=== PATIENT | male | born 1960 | race Caucasian/White ===

== ENCOUNTER 2018-10-22 08:46 | Inpatient (IN) ==
--- NOTE | 2018-10-21 22:33 | Discharge Summary ---
Orders not resulted at time of discharge: Pending orders 10/22/18 00:01 XR hip complete RT [XR] Routine H/H [Hemoglobin and Hematocrit] [HEME] Routine Date of Encounter: 10/23/18 Time of Encounter: 11:40 - Discharge Diagnosis (1) Status post total hip replacement, right Priority: Primary Status: Acute Comments: Opsite dressing, leave intact until first post-operative visit. If dressing becomes >50% saturated, contact office, remove dressing and place appropriate dressing in its place. Do not allow for dressing to get wet. Zipline/[place] in place, plan to remove at post-operative day #14-16. Total Joint Precautions x 6 weeks Apply cold therapy wrap 3-6x/day for 20 minutes at a time. Encourage ambulation throughout the day Use Incentive spirometer 10x/hour. Elevate affected extremity above heart as tolerated. Brace: Wear hip abductor brace at night x 6 weeks. (2) Arthritis of right hip Priority: Primary Status: Acute (3) BIANCA (obstructive sleep apnea) Priority: Secondary Status: Chronic (4) Tobacco use Priority: Secondary Status: Chronic (5) History of pulmonary embolism Priority: Secondary Status: Chronic - Hospital Course Hospital course: Mr. Cortes is a 58 year old male POD#1 - Right THR 10/22 Patient seen at bedside, without complaints. A&O x 3 Afebrile, vital signs stable. Vital Signs Temp Pulse Resp BP Pulse Ox 10/23/18 07:10 98.2 F 75 14 113/65 95 10/23/18 03:38 98.1 F 66 16 102/66 95 10/22/18 22:51 98.3 F 75 17 106/68 97 10/22/18 19:04 97.4 F L 65 16 116/71 98 10/22/18 16:12 98 F 75 16 119/54 95 10/22/18 15:20 98 F 80 16 104/67 97 10/22/18 14:20 98 F 78 15 101/63 96 10/22/18 13:50 97.9 F 75 16 103/72 97 10/22/18 13:20 97.9 F 66 15 111/71 99 10/22/18 12:55 98.7 F 69 16 116/66 95 10/22/18 12:45 72 18 123/75 99 10/22/18 12:35 68 20 139/67 99 10/22/18 12:25 98.8 F 72 24 138/89 100 Intake and Output 10/22/18 10/23/18 10/23/18 23:59 07:59 15:59 Intake Total 890 / 890 350 / 350 240 / 240 Output Total 500 / 500 1600 / 1600 Balance 390 / 390 -1250 / -1250 240 / 240 Intake: IV Fluids 100 / 100 100 / 100 Ancef 2,000 MG In 0.9 % Sodium 100 / 100 100 / 100 Chloride 100 ML @ 200 mls/hr IVPB Q8H [facility] Rx#:[id number] Oral 790 / 790 250 / 250 240 / 240 Output: Urine 500 / 500 1600 / 1600 Other: Meal Dinner Breakfast Percent of Meal Consumed 80% 100% # Voids 1 Weight 88.5 kg Labs reviewed. H/H - stable, asymptomatic Short CBC 10/23/18 10/22/18 Range/Units 05:58 12:38 Hgb 11.0 L D 13.5 (12.9-16.9) g/dL Hct 33.0 L 41.2 (37.5-50.1) % BMP 10/23/18 Range/Units 05:58 Sodium 137 (136-145) mEq/L Potassium 4.3 (3.5-5.1) mEq/L Chloride 107 (98-107) mEq/L Carbon Dioxide 24 (23-29) mEq/L BUN 17 (6-20) mg/dL Creatinine 1.00 (0.70-1.30) mg/dL Glucose 121 H (70-105) mg/dL Calcium 8.6 (8.6-10.3) mg/dL Pain control: adequate Participating in PT. All questions and concerns addressed. Educated on use of incentive spirometer. Encouraged ambulation and proper hydration. Patient educated on post-operative restrictions and post-operative care. Assessment and plan: Continue with postoperative care Discharge plan: Home with OP, discharge today. - Time Spent with Patient Total time spent providing and/or coordinating discharge services: - Discharge Medications Prescriptions: OxyCODONE Immed Rel [Roxicodone 5 MG] 5 mg PO Q6HR PRN 7 Days #28 tablet PRN Reason: Severe Pain Home Medications: Oxycodone HCl/Acetaminophen [Percocet 10-325 mg Tablet] 1 each PO PRN PRN 04/16/18 [History] Aspirin Enteric Coated [Aspirin EC] 325 mg PO BID 10 Days #20 tablet. 10/21/18 [Rx] Docusate [Colace] 100 mg PO BID 10 Days #20 capsule 10/21/18 [Rx] Albuterol Sulfate [Proair Respiclick] 90 mcg IH PRN PRN 10/22/18 [History] Aspirin/Calcium Carbonate/Mag [Aspirin Buffered 325 mg Tab] 325 mg PO 10/22/18 [History] Colace 100 mg PO DAILY 10/22/18 [History] OxyCODONE Immed Rel [Roxicodone 5 MG] 5 mg PO Q6HR PRN 7 Days #28 tablet 10/22/18 [Rx] SUMAtriptan Succinate [Imitrex] 100 mg PO PRN PRN 10/22/18 [History] Ferrous Sulfate 325 mg PO BIDWM tablet 10/23/18 [Rx] Allergies/Adverse Reactions: Allergy/AdvReac Type Severity Reaction Status Date / Time codeine AdvReac Nausea Verified 08/10/17 09:54 meloxicam AdvReac Migraine Verified 08/10/17 09:54 tamsulosin [From Flomax] AdvReac Nausea Verified 08/10/17 09:54 Date of admission: 10/22/18 Primary care physician: Derek Flores MD Anticipated date of discharge: 10/23/18 - Patient Status Disposition: Home, Self-Care Condition: Good Functional capacity at discharge: uses cane/walker Overall status at discharge: patient is progressing back to baseline - Discharge Instructions Follow Up With: Marion Murray PAC [Physician [employer]] - 11/01/18 1:45 pm Mike Sutherland MD [Partnered Physician] - 11/21/18 4:40 pm Derek Flores MD [Primary Care Provider] - 10/26/18 2:15 pm
--- NOTE | 2018-10-22 08:55 | History & Physical Report ---
Date of Encounter: 10/22/18 Time of Encounter: 08:55 24 Hour HP Update - Instructions Instructions: If the History and Physical is less than 30 days old and was completed prior to A.M. admission and or procedure and has NOT been updated on calendar day of procedure please complete this update prior to performing procedure. - Update Patient reports changes in Medical Condition: No Changes in examination, assessment, or condition: No Changes in Medication: No Preop tests/diagnostics Reviewed: Yes Surgery Remains Indicated: Yes Consent for Planned Operative Procedure(s) Verified: Yes - Pre-Operative Checklist Preoperative Checklist Indicated: No Prophylactic Antibiotic Ordered: Yes Is VTE Prophylaxis Indicated?: Yes
[2018-10-22] MEDS ORDERED: Albuterol 2.5 MG/3 ML NEBULIZER IH ONE (09:18)
[2018-10-22] MEDS ORDERED: CeFAZolin Syr 2,000MG/20 ML 2,000 MG/20 ML SYRINGE IVPB ONE (09:18)
--- NOTE | 2018-10-22 09:21 | Anesthesia Evaluation PreOp ---
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 10/21/18 [Rx] Docusate [Colace] 100 mg PO BID 10 Days #20 capsule 10/21/18 [Rx] Albuterol Sulfate [Proair Respiclick] 90 mcg IH PRN PRN 10/22/18 [History] Aspirin/Calcium Carbonate/Mag [Aspirin Buffered 325 mg Tab] 325 mg PO 10/22/18 [History] Colace 100 mg PO DAILY 10/22/18 [History] SUMAtriptan Succinate [Imitrex] 100 mg PO PRN PRN 10/22/18 [History] Allergy/AdvReac Type Severity Reaction Status Date / Time codeine AdvReac Nausea Verified 08/10/17 09:54 meloxicam AdvReac Migraine Verified 08/10/17 09:54 tamsulosin [From Flomax] AdvReac Nausea Verified 08/10/17 09:54 - Meds/Allergy Pre-op Review Medications Reviewed: Yes Allergies Reviewed: Yes Beta Blockers on Current Med List: No Anesthesia Results - Labs Laboratory Tests 10/15/18 10/15/18 10/15/18 15:53 15:53 15:53 WBC 5.9 Hgb 14.5 Hct 42.9 Plt Count 228 PT 10.8 INR 1.0 APTT 30.2 Sodium 138 Potassium 3.8 Chloride 105 Carbon Dioxide 24 BUN 18 Creatinine 1.01 Est GFR (Non-Af Amer) > 60 - Imaging EKG: report reviewed Anesthesia Exam Vital Signs/O2 Sat/Glucose, Most Recent Temp Pulse Resp BP Pulse Ox 97.9 F 77 18 124/80 98 10/22/18 09:03 10/22/18 09:03 10/22/18 09:03 10/22/18 09:03 10/22/18 09:03 Weight: 88 kg NPO (# of Hours): > 8 hr - HEENT Pupil (Motor): Pupils equal Mallampati: II Teeth: Normal Oral Opening: Greater than 3 - FIBER DESIGNER LOC: Oriented FIBER DESIGNER Motor: Normal RUE, Normal LUE, Normal RLE, Normal LLE, Normal Face FIBER DESIGNER Sensory: Normal: RUE, LUE, RLE, LLE, Face - Cardiac Rhythm: Regular Murmur: None - Pulmonary Breath Sounds: bilateral Clear Respiratory Effort: Symmetrical Anesthesia Assess/Plan ASA Score: 3 (BIANCA) Level of consciousness: Cooperative, Oriented Anesthetic Plan: General Reason for No Neuroaxial/Regional Block: Other (history of extensive back surgeries with implanted rods and pins) Monitoring Plan: Standard Monitors Recovery Plan: PACU
[2018-10-22] MEDS ORDERED: *HR* Midazolam HCl 2 MG/2 ML VIAL ONE (09:25)
[2018-10-22] MEDS ORDERED: *HR* FentaNYL (PF) 100 MCG/2 ML VIAL ONE ×2 (09:25→11:24)
[2018-10-22] MEDS ORDERED: *HR* Propofol 200 MG/20 ML VIAL IVP ONE (09:25)
[2018-10-22] MEDS ORDERED: Famotidine 20 MG/2 ML VIAL IVP ONE (09:28)
[2018-10-22] MEDS ORDERED: Gabapentin 300 MG CAPSULE PO ONE (09:28)
[2018-10-22] MEDS ORDERED: *HR* OxyCODONE ER (12 HR) 10 MG TABLET PO ONE (09:28)
[2018-10-22] MEDS ORDERED: Celecoxib 100 MG CAPSULE PO ONE (09:29)
[2018-10-22] MEDS ORDERED: Ringers Solution, Lactated 1,000 ML IVC SCH ×2 (09:30→13:24)
[2018-10-22] MEDS ORDERED: *HR* Promethazine 25 MG/ML VIAL IVP PRN ×3 (09:33→13:24)
[2018-10-22] MEDS ORDERED: *HR* OxyCODONE Immed Rel 5 MG TABLET PO PRN ×2 (09:33→13:24)
[2018-10-22] MEDS ORDERED: Ondansetron 4 MG/2 ML VIAL IVP ONE ×2 (09:33→13:24)
[2018-10-22] MEDS ORDERED: Ketorolac 15 MG/ML VIAL IVP ONE ×2 (09:33→13:24)
[2018-10-22] MEDS ORDERED: Ethanol\\Acetic Acid\\Na Ace\\Ben 1,000 ML IRRIG.SOLN IR ONE (10:08)
[2018-10-22] MEDS ORDERED: *HR* PHENYLEPHRINE 1,000 MCG/10 ML SYRINGE IVP ONE (11:19)
--- NOTE | 2018-10-22 11:57 | Orthopedic Operative Note ---
Date of procedure: 10/22/18 Pre-op diagnosis: Right hip arthritis Post-op diagnosis: same Procedure: Procedure: Right Total Hip Replacment robotic-assisted Estimated blood loss: 200 cc Hardware: Metal and polyethylene replacement. Leni DM Cup: 60 cup Femoral size 11 stem Head: 8 head with Samia Procedural Notes: Grade 4 arthritic changes femoral head acetabular socket, procedure performed with robotic assistance. 2 mm longer operative versus nonoperative leg is measured by preoperative CT scan Operative procedure: The patient was brought to the operating room and placed on the operating room table. After general anesthesia was administered the patient was placed in the lateral decubitus position with the operative leg up. All pressure points were padded appropriately and the head was stabilized in the neutral position. The operative extremity was prepped and draped in the sterile surgical fashion patient received IV antibiotic prior to skin incision. 3 Steinmann pins were placed in the iliac crest 3 cm proximal to the anterior superior iliac spine this was for the robotic-assisted sensor. This was done through a small 2 cm incision. A standard posterior approach is made to the operative hip, the incision was made through the skin and subcutaneous tissue hemostasis was obtained with Bovie cautery. Using careful sharp dissection the fascia was identified and incised exposing the external rotators. The greater trochanter was marked, and length was measured at this time utilizing robotic assistance. The external rotators were released off the greater trochanter and tagged with #2 FiberWire suture. The capsule was T'd open and the hip was brought into internal rotation. Patient noted to have grade 4 arthritic changes femoral head. The femoral neck cut was made at the appropriate level roughly 15 mm proximal to the lesser trochanter aced on preoperative templating. An anterior capsulotomy was performed for the anterior retractor. Soft tissues removed from the acetabulum. Patient noted to have grade 4 arthritic changes acetabulum. The acetabulum reference point was confirmed. The acetabulum was then mapped with robotic assistance. Based on the preoperative plan the acetabulum was reamed in one step with a 59 reamer. The 60 acetabulum was impacted with robotic assistance and 38 degrees of abduction and 20 degrees of anteversion. The hip was brought back in to internal rotation and prepared with the box person followed by the canal finder followed by the reaming process to a size 11/12 broaching process in 20 degrees anteversion. It was broached up to the appropriate size 11 Trial reduction revealed leg lengths close to normal. The femoral implant was impacted in place in 20 degrees of anteversion. Trial reduction found the hip to be stable with 8 head and Samia. The trials were removed and the real implants were impacted in place. The hip was reduced, patient had robotic confirmed leg length of 7 mm longer than the contralateral side. The hip had excellent stability with forward flexion to 90 degrees adduction of 30 degrees and internal rotation of 60 degrees. The hip had no shuck. The hip sat with an antibacterial solution. It was irrigated out with 2 L of pulse irrigation. The Steinmann pins were removed. The hip was closed by the PA. The deep tissue was irrigated and closed deep with #1 PDS suture superficially with 0 PDS suture and skin was closed with Dermabond and zip tie. The patient was placed in a sterile dressing and abduction pillow. The patient was extubated and transferred to the recovery room in stable condition. Anesthesia: BENJAMÍN Surgeon: Mike Sutherland Was there an respiratory therapist assistant present: No Estimated blood loss (cc): 200 Condition: stable Disposition: PACU
[2018-10-22] MEDS: *HR* HYDROmorphone (PF) 1 MG/ML SYRINGE IVP PRN ×2 (12:37→12:48)
[2018-10-22 12:54] LABS: Hematocrit 41.2 % (37.5-50.1); Hemoglobin 13.5 g/dL (12.9-16.9)
--- NOTE | 2018-10-22 13:04 | Anesthesia Evaluation Post Op ---
Date of Encounter: 10/22/18 Time of Encounter: 13:04 - Vital Signs Vital Signs: Vital Signs/O2 Sat/Glucose, Most Recent Temp Pulse Resp BP Pulse Ox 98.7 F 69 16 116/66 95 10/22/18 12:55 10/22/18 12:55 10/22/18 12:55 10/22/18 12:55 10/22/18 12:55 - Lungs Lungs: Clear Ascult./Percussion - Airway Airway: Non-obstructed - Cardiovascular Regular Rate - Mental Status Mental Status: Alert & Oriented, Answers Appropriately - Pain Pain Scale: 0 - Nausea Vomiting Nausea Vomiting: Not Present - Hydration Hydration: Tolerates oral liquids - Discharge PostOp Status: Transfer Patient to floor
[2018-10-22] MEDS ORDERED: *HR* HYDROmorphone (PF) 1 MG/ML SYRINGE IVP PRN (13:24)
[2018-10-22] MEDS ORDERED: MOM Conc 10 ML UD.LIQ PO PRN (13:24)
[2018-10-22] MEDS ORDERED: Temazepam 15 MG CAPSULE PO PRN (13:24)
[2018-10-22] MEDS ORDERED: Ondansetron 4 MG/2 ML VIAL IVP PRN (13:24)
[2018-10-22] MEDS ORDERED: Sennosides 8.6 MG TABLET PO PRN (13:24)
[2018-10-22] MEDS ORDERED: traMADol 50 MG TABLET PO PRN (13:24)
[2018-10-22] MEDS ORDERED: Naloxone 0.4 MG/ML INJ IVP PRN (13:24)
[2018-10-22] MEDS: Multivit/Ca/Min/Fe/FA 1 TAB TABLET PO SCH (14:17)
[2018-10-22] MEDS: *HR* OxyCODONE/APAP 5/325 TABLET PO PRN ×2 (14:22→18:31)
[2018-10-22] MEDS: Ascorbic Acid 500 MG TABLET PO SCH (16:01)
[2018-10-22] MEDS: *HR* Enoxaparin 30 MG/0.3 ML SYRINGE SQ SCH (17:19)
[2018-10-22] MEDS ORDERED: *HR* Enoxaparin 30 MG/0.3 ML SYRINGE SQ SCH (18:00)
[2018-10-22] MEDS: *HR* OxyCODONE Immed Rel 5 MG TABLET PO PRN (23:22)
[2018-10-23] MEDS: *HR* OxyCODONE Immed Rel 5 MG TABLET PO PRN ×2 (04:41→09:03)
[2018-10-23] MEDS: *HR* Enoxaparin 30 MG/0.3 ML SYRINGE SQ SCH (04:42)
[2018-10-23 06:45] LABS: BUN/Creatinine Ratio 17 (6-26); Blood Urea Nitrogen 17 mg/dL (6-20); Calcium 8.6 mg/dL (8.6-10.3); Carbon Dioxide 24 mEq/L (23-29); Chloride 107 mEq/L (98-107); Glucose 121 mg/dL (70-105); Osmolality,Calculated 287 (280-300); Potassium 4.3 mEq/L (3.5-5.1); Sodium 137 mEq/L (136-145); eGFR For Non-African Americans > 60 (> 60)
--- NOTE | 2018-10-23 08:08 | Orthopedics Progress Note ---
Date of Encounter: 10/23/18 Time of Encounter: 08:08 Subjective Interval history: Patient was seen this morning doing well without complaints. Afebrile vital signs stable. Operative extremity: Neurovascularly intact Dressing clean dry and intact Calves nontender Assessment and plan: Continue with postoperative care Hematocrit 33 plan for discharge today Objective Vital signs: Vital Signs Temp Pulse Resp BP Pulse Ox 10/23/18 07:10 98.2 F 75 14 113/65 95 10/23/18 03:38 98.1 F 66 16 102/66 95 10/22/18 22:51 98.3 F 75 17 106/68 97 10/22/18 19:04 97.4 F L 65 16 116/71 98 10/22/18 16:12 98 F 75 16 119/54 95 10/22/18 15:20 98 F 80 16 104/67 97 10/22/18 14:20 98 F 78 15 101/63 96 10/22/18 13:50 97.9 F 75 16 103/72 97 10/22/18 13:20 97.9 F 66 15 111/71 99 10/22/18 12:55 98.7 F 69 16 116/66 95 10/22/18 12:45 72 18 123/75 99 10/22/18 12:35 68 20 139/67 99 10/22/18 12:25 98.8 F 72 24 138/89 100 10/22/18 09:03 97.9 F 77 18 124/80 98 Intake and Output 10/22/18 10/23/18 10/23/18 23:59 07:59 15:59 Intake Total 890 / 890 350 / 350 Output Total 500 / 500 1600 / 1600 Balance 390 / 390 -1250 / -1250 Intake: IV Fluids 100 / 100 100 / 100 Ancef 2,000 MG In 0.9 % Sodium 100 / 100 100 / 100 Chloride 100 ML @ 200 mls/hr IVPB Q8H [facility] Rx#:[id number] Oral 790 / 790 250 / 250 Output: Urine 500 / 500 1600 / 1600 Other: Meal Dinner Percent of Meal Consumed 80% Weight 88.5 kg - Labs CBC & BMP: 10/23/18 05:58 10/23/18 05:58 Labs: Abnormal lab results Hgb 11.0 g/dL (12.9-16.9) L D 10/23/18 05:58 Hct 33.0 % (37.5-50.1) L 10/23/18 05:58 Glucose 121 mg/dL (70-105) H 10/23/18 05:58 - VTE Documentation of Mechanical Device: Venous foot pump, device Consult Discharge Plan - Plan Referrals: Marion Murray, [facility] [Physician [employer]] - 11/01/18 1:45 pm Mike Sutherland MD [Partnered Physician] - 11/21/18 4:40 pm Derek Flores MD [Primary Care Provider] - 10/26/18 2:15 pm Prescriptions: OxyCODONE Immed Rel [Roxicodone 5 MG] 5 mg PO Q6HR PRN 7 Days #28 tablet PRN Reason: Severe Pain
[2018-10-23] MEDS: Ascorbic Acid 500 MG TABLET PO SCH (09:04)
[2018-10-23] MEDS: Multivit/Ca/Min/Fe/FA 1 TAB TABLET PO SCH (09:04)
[2018-10-23 12:04] VITALS: BP 104/68
== END 2018-10-23 13:02 | disposition home or self-care (01) | DRG 470 ==
LOC: SAMDAY 08:46 → 3NENU 13:19
PROVIDERS: ADMIT Orthopaedic Surgery; ATTEND Orthopaedic Surgery

== ENCOUNTER 2018-12-30 19:24 | Inpatient (IN) ==
[2018-12-30] MEDS ORDERED: *HR* Propofol 200 MG/20 ML VIAL IVP ONE (19:29)
[2018-12-30] MEDS ORDERED: *HR* FentaNYL (PF) 100 MCG/2 ML VIAL IVP ONE ×2 (19:29→19:43)
--- NOTE | 2018-12-30 19:33 | Emergency Department Note ---
Disposition Clinical Impression: Femur fracture, right Qualifiers: Encounter type: initial encounter Femur location: unspecified portion of femur Fracture type: closed Fracture morphology: unspecified fracture morphology Qualified Code(s): S72.91XA - Unspecified fracture of right femur, initial encounter for closed fracture Fall Qualifiers: Encounter type: initial encounter Qualified Code(s): W19.XXXA - Unspecified fall, initial encounter Disposition: Admitted As Inpatient Condition: Fair Time of Disposition: 19:34 Lower Extremity Injury HPI - General Stated Complaint: right leg injury Time Seen by Provider: 12/30/18 19:29 Source: patient Mode of arrival: EMS Limitations: no limitations - History of Present Illness HPI Narrative: Patient was sent from [facility] status post fall and right femur fracture proximal to his right knee prosthesis. Patient denies other injury. The orthopedic surgeon Dr. Sutherland was aware of the patient's impending arrival Pt Subjective Complaint: leg injury Injury location: Right thigh Onset (ago): hour(s) Mechanism of Injury: blunt, fall Context: fall Pain Severity: moderate Improves with: immobilization Worsens with: weight bearing, movement, palpation Associated symptoms: Reports: unable to bear weight Treatments prior to arrival: other - Related Data Home Medications Medication Instructions Recorded Confirmed Oxycodone HCl/Acetaminophen 1 each PO PRN PRN 04/16/18 11/05/18 [Percocet 10-325 mg Tablet] Albuterol Sulfate [Proair 90 mcg IH PRN PRN 10/22/18 11/05/18 Respiclick] Colace 100 mg PO DAILY 10/22/18 11/05/18 SUMAtriptan Succinate [Imitrex] 100 mg PO PRN PRN 10/22/18 11/05/18 Previous Rx's Medication Instructions Recorded Aspirin Enteric Coated [Aspirin EC] 325 mg PO BID 10 Days #20 tablet. 10/21/18 Ferrous Sulfate 325 mg PO BIDWM tablet 10/23/18 Allergies Allergy/AdvReac Type Severity Reaction Status Date / Time codeine AdvReac Nausea Verified 08/10/17 09:54 meloxicam AdvReac Migraine Verified 08/10/17 09:54 tamsulosin [From Flomax] AdvReac Nausea Verified 08/10/17 09:54 All systems ED: reviewed and negative except as stated. Constitutional: Reports: as per HPI Eyes: Reports: as per HPI ENT ED: Reports: as per HPI Cardiovascular: Reports: as per HPI Respiratory: Reports: as per HPI Gastrointestinal: Reports: as per HPI Genitourinary: Reports: as per HPI Musculoskeletal: Reports: other (right thigh pain) Integumentary: Reports: as per HPI Neurological: Reports: as per HPI Psychiatric: Reports: as per HPI Endocrine: Reports: as per HPI Hematological/Lymphatic: Reports: as per HPI Allergic/Immunologic: Reports: as per HPI Past Medical History - Past Medical History Source: patient Medical history: Reports: arthritis, COPD, migraine, pulmonary embolus, other Psychiatric history: Reports: anxiety, depression - Social History Smoking Status: Current every day smoker Smokeless Tobacco Status: No Alcohol use: Reports: none Drug use: Reports: none Physical Exam - General Limitations: no limitations General appearance: alert - Head Head exam: atraumatic - Eye Eye exam: Present: normal appearance - ENT ENT exam: normal exam - Neck Neck exam: Present: normal inspection, full ROM - Chest Chest inspection: Present: normal inspection, symmetric chest wall rise - Respiratory Respiratory exam: Present: normal lung sounds bilaterally - Cardiovascular Cardiovascular exam: Present: regular rate, normal rhythm, normal heart sounds - Rectal Exam Rectal exam: Present: deferred - Expanded Lower Extremity Exam Hip/Pelvis exam: Present: normal inspection Upper leg exam: Present: tenderness, swelling, other (Tender swelling in visible deformity to the right distal thigh) Knee exam: Present: normal inspection Lower leg exam: Present: normal inspection Ankle exam: Present: normal inspection Foot/toe exam: Present: normal inspection Neurovascular/Tendon exam: Absent: pulse deficit - Neurological Exam Neurological exam: Present: alert, oriented X3, CN II-XII intact - Psychiatric Psychiatric exam: Present: normal affect, normal mood - Skin Skin exam: Present: warm, dry, intact Course Course Narrative: Patient presents after mechanical fall. He was sent from an outside facility after being diagnosed with a displaced right distal femur fracture. I did review the patient's images and see that his fracture is displaced. I will consent him for procedural sedation analgesia with closed reduction. I will discuss the patient's care with Dr. Sutherland, orthopedics. The patient will require admission - Consultations Consultation #1: I discussed this case with the patient's orthopedic surgeon Dr. Sutherland. He recommended no closed reduction at this time in the emergency department as the patient is neurovascularly intact. He recommended placement of a knee immobilizer and admission to the medicine service with planned surgery tomorrow Time: 19:50 Vital Signs Temperature 98.3 F 12/30/18 19:25 Pulse Rate 82 12/30/18 19:25 Respiratory Rate 18 12/30/18 19:25 Blood Pressure 127/78 12/30/18 19:25 O2 Sat by Pulse Oximetry 96 12/30/18 19:25 Temperature 98.3 F 12/30/18 19:25 Pulse Rate 82 12/30/18 19:25 Respiratory Rate 18 12/30/18 19:25 Blood Pressure 127/78 12/30/18 19:25 O2 Sat by Pulse Oximetry 96 12/30/18 19:25 Oxygen Delivery Oxygen Delivery Room Air Extremity Injury, Lower - Medical Records Medical records reviewed: Yes I reviewed the patient's medical records. - Radiology Data Radiology results reviewed: Yes I reviewed the patient's radiology results.
[2018-12-30 20:21] LABS: Basophils % 0.2 %; Eosinophils # 0.1 K/mcL (0.0-0.6); Eosinophils % 1.2 %; Hematocrit 41.1 % (37.5-50.1); Hemoglobin 13.6 g/dL (12.9-16.9); Immature Granulocytes % 0.4 % (0-4); Lymphocytes # 1.8 K/mcL (0.6-4.6); Lymphocytes % 15.9 %; Mean Corpuscular HGB Conc 33.1 g/dL (31.6-35.5); Mean Corpuscular Hemoglobin 28.5 pg (28.0-33.3); Mean Corpuscular Volume 86.2 fL (83.0-100.0); Mean Platelet Volume 9.7 fL (9.4-12.4); Monocytes % 8.7 %; Neutrophils # 8.3 K/mcL (1.6-8.9); Platelet Count 264 K/mcL (140-400); Red Blood Count 4.77 M/mcL (4.19-5.50); Red Cell Distribution Width 14.1 % (11.5-14.5); Segmented Neutrophils % 73.6 %
[2018-12-30 20:28] LABS: Prothrombin Time 11.3 Seconds (9.4-12.1)
[2018-12-30 20:42] LABS: Alanine Aminotransferase 10 Units/L (7-52); Albumin 4.1 g/dL (3.5-5.7); Albumin/Globulin Ratio 1.6 (1.1-2.2); Alkaline Phosphatase 73 Units/L (34-104); Aspartate Amino Transferase 14 Units/L (13-39); BUN/Creatinine Ratio 13 (6-26); Bilirubin,Total 0.3 mg/dL (0.3-1.0); Blood Urea Nitrogen 12 mg/dL (6-20); Calcium 9.4 mg/dL (8.6-10.3); Carbon Dioxide 24 mEq/L (23-29); Chloride 106 mEq/L (98-107); Globulin 2.6 g/dL (2.4-3.5); Glucose 98 mg/dL (70-105); Osmolality,Calculated 288 (280-300); Potassium 3.9 mEq/L (3.5-5.1); Sodium 139 mEq/L (136-145); Total Protein 6.7 g/dL (6.4-8.9); eGFR For Non-African Americans > 60 (> 60)
[2018-12-30] MEDS ORDERED: Naloxone 0.4 MG/ML INJ IVP PRN (22:42)
[2018-12-30] MEDS ORDERED: OXYCODONE Oral CONC 10 MG/0.5 ML ORAL.SYG SL PRN (22:42)
[2018-12-30] MEDS ORDERED: Ondansetron 4 MG/2 ML VIAL IVP PRN (22:43)
[2018-12-30] MEDS: OXYCODONE Oral CONC 10 MG/0.5 ML ORAL.SYG SL PRN (23:00)
--- NOTE | 2018-12-31 01:13 | Internal Med History&Physical ---
Date of Encounter: 12/31/18 Time of Encounter: 00:40 Internal Medicine - H&P: HPI Chief complaint: Right femur fracture Admitted From: Emergency Dept Plans for Post Hospital Care: Home History of present illness: Mr. Cortes is a 58 year old male Patient presented to the emergency room from [facility] after experiencing a fall and a right femur fracture proximal to the right knee replacement. [place] falling on his right leg. He was then transported to [facility] emergency room where an x-ray of the leg was performed. The results showed: Acute comminuted transverse fracture half shaft width posterior displaced anterior apex angulated 36 degrees distal right femoral metadiaphysis. One of the medial fracture lines extending into the femoral metaphysis may extend to the femoral component of the knee arthroplasty, though this is uncer tain. Tibial component and patellar component of the knee arthroplasty appear unremarkable. No retained foreign body. Patient was then transferred to [facility] emergency room for further management. In the emergency room patient's vital signs were within normal limits. CBC, coa gs, and BMP were also within normal limits. Dr. Sutherland of orthopedic surgery had been notified from [facility] and agreed to see the patient. He planned on operating in the morning. Patient was placed in a right leg splint and sent to the medical floor for further management. Upon my evaluation, patient is resting comfortably in hospital bed in no acute distress. He denies chest pain, bowel pain, nausea, vomiting, diarrhea and constipation. He does have some urinary retention, which she has had before. A Zurita catheter has been placed with 1.4 L of urine output. He says he previously had a knee replacement done in April 2018. He also has had a right hip replacement and revision which was done earlier this year. He has a history of arthritis and nicotine use. He had a pulmonary embolism in 2012 but he does not take anticoagulation aside from an aspirin a day. He has a family history of arthritis as well. He is a full code. Past Med Surg Social Fam HX - Past Medical History Medical history: arthritis, COPD, migraine, pulmonary embolus, other Additional medical history: lumbar disc disease. sleep apnea. heart murmur. tobacco use since a teenager. acute diverticulitis. tubular adenoma/ colonoscopu Psychiatric history: anxiety, depression - Past Surgical History Additional surgical history: back 2011. spinal decomp 1987. Right knee scope. Right thumb arthroplasty/fusion. Right CTR - Social History Smoking Status: Current every day smoker Smokeless Tobacco Status: No Alcohol use: none Drug use: none Internal Medicine - H&P: Meds Oxycodone HCl/Acetaminophen [Percocet 10-325 mg Tablet] 1 each PO PRN PRN 04/16/18 [History] Aspirin Enteric Coated [Aspirin EC] 325 mg PO BID 10 Days #20 tablet. 10/21/18 [Rx] Albuterol Sulfate [Proair Respiclick] 90 mcg IH PRN PRN 10/22/18 [History] Colace 100 mg PO DAILY 10/22/18 [History] SUMAtriptan Succinate [Imitrex] 100 mg PO PRN PRN 10/22/18 [History] Ferrous Sulfate 325 mg PO BIDWM tablet 10/23/18 [Rx] Allergy/AdvReac Type Severity Reaction Status Date / Time meloxicam AdvReac Migraine Verified 12/30/18 20:15 tamsulosin [From Flomax] AdvReac Nausea Verified 12/30/18 20:15 All Systems PM: A 10-system review of systems was performed and is negative for pertinent findings except as documented above in the HPI. - Constitutional Vitals: Temp Pulse Resp BP Pulse Ox 98.4 F 73 17 114/74 97 12/30/18 22:30 12/30/18 22:30 12/30/18 22:30 12/30/18 22:30 12/30/18 22:30 General appearance: Present: cooperative, A&O X 3, pleasant, no acute distress, answers questions appropriately Exam: - - Head Head exam: Present: normal inspection - Eye Eye exam: Present: EOMI, normal appearance - Respiratory Respiratory exam: Present: CTAB. Absent: rales, respiratory distress, rhonchi, wheezes - Cardiovascular Cardiovascular exam: Present: RRR. Absent: diastolic murmur, systolic murmur - GI/Abdominal GI/Abdominal exam: Present: normal bowel sounds, soft. Absent: tenderness - Extremities Exam Extremities exam: Present: tenderness, warm, radial pulses palpable and symmetrical. Absent: calf tenderness, pedal edema Additional comments: Right knee in splint, tender with movement and palpation. - Neurological Exam Neurological exam: Present: strengths equal and symetr throughout. Absent: facial droop, speech deficit Additional comments: Right leg in splint - Skin Skin exam: Present: dry, normal color, warm Internal Med - H&P Results - Labs CBC & Chem 7: 12/30/18 20:10 12/30/18 20:10 Labs: Short CBC 12/30/18 Range/Units 20:10 WBC 11.2 H (4.3-11.1) K/mcL Hgb 13.6 (12.9-16.9) g/dL Hct 41.1 (37.5-50.1) % Plt Count 264 (140-400) K/mcL Neutrophils # 8.3 (1.6-8.9) K/mcL BMP 12/30/18 20:10 Sodium 139 Potassium 3.9 Chloride 106 Carbon Dioxide 24 BUN 12 Creatinine 0.89 Glucose 98 Calcium 9.4 Liver Function 12/30/18 Range/Units 20:10 Total Bilirubin 0.3 (0.3-1.0) mg/dL AST 14 (13-39) Units/L ALT 10 (7-52) Units/L Alkaline Phosphatase 73 (34-104) Units/L Albumin 4.1 (3.5-5.7) g/dL - Assessment and Plan (1) Fall Current Visit: Yes Status: Acute Assessment and plan: Patient fell [place] resulting in a fracture of his right femur. Dr. Sutherland of orthopedic surgery notified, and plans to take patient to surgery later today. A.m. labs Nothing by mouth after midnight Pain management as needed EKG in the morning Chest x-ray in the morning Qualifiers: Encounter type: initial encounter Qualified Code(s): W19.XXXA - Unspecified fall, initial encounter (2) Femur fracture, right Current Visit: Yes Status: Acute Assessment and plan: Secondary to fall Management per orthopedic surgery team Qualifiers: Encounter type: initial encounter Femur location: unspecified portion of femur Fracture type: closed Fracture morphology: unspecified fracture morphology Qualified Code(s): S72.91XA - Unspecified fracture of right femur, initial encounter for closed fracture (3) Status post total right knee replacement Current Visit: No Status: Acute Assessment and plan: Knee replacement last April by Dr. Sutherland. (4) Urinary retention Current Visit: Yes Status: Acute Assessment and plan: Zurita catheter placed, patient had 1.4 L of urine output. Patient says that he has had urinary retention in the past he has a listed allergy to tamsulosin, causing nausea. Continue Zurita catheter Monitor urine output (5) Tobacco use Current Visit: No Status: Chronic Assessment and plan: Patient declines nicotine patch (6) DVT prophylaxis Current Visit: Yes Status: Acute Assessment and plan: We will hold off on SCDs secondary to leg injury, and hold off on chemical prophylaxis for now due to pending surgery. - Time Spent With Patient Total time spent is greater than 50% in coordination of care (as documented) at patient's floor/unit and/or counseling patient: Greater than 35 minutes
[2018-12-31] MEDS ORDERED: 0.9 % Sodium Chloride 1,000 ML IVC ONE (01:46)
[2018-12-31] MEDS: OXYCODONE Oral CONC 10 MG/0.5 ML ORAL.SYG SL PRN (03:04)
[2018-12-31] MEDS ORDERED: OXYCODONE Oral CONC 10 MG/0.5 ML ORAL.SYG SL PRN ×2 (04:34→04:35)
[2018-12-31] MEDS ORDERED: *HR* Morphine 2 MG/ML SYRINGE IVP ONE (04:34)
[2018-12-31 07:25] LABS: Hematocrit 37.6 % (37.5-50.1); Hemoglobin 12.1 g/dL (12.9-16.9); Mean Corpuscular HGB Conc 32.2 g/dL (31.6-35.5); Mean Corpuscular Hemoglobin 27.8 pg (28.0-33.3); Mean Corpuscular Volume 86.4 fL (83.0-100.0); Mean Platelet Volume 9.9 fL (9.4-12.4); Platelet Count 203 K/mcL (140-400); Red Blood Count 4.35 M/mcL (4.19-5.50); Red Cell Distribution Width 14.2 % (11.5-14.5)
--- NOTE | 2018-12-31 07:44 | Internal Med Progress Note ---
<KaliRacquelShanita - Last Filed: 12/31/18 11:01> Hospitalist Progress Note - Encounter Date of Encounter: 12/31/18 Time of Encounter: 09:20 - Subjective Interval History: Pt sitting up in bed awake and alert. Pt admits to pain 2/2 orthoglass cast, not relieved with readjustment earlier. Pt requested relief and noted mild relief of stabbing pain from sharp edges of splint with 2x2 used as padding. Pt states pain 2/2 femur fx 5-6/10; admits paint is well controlled. Pt denies fevers, chills, abdominal pain, SOB, CP - Exam Vitals: Temp Pulse Resp BP Pulse Ox 98.8 F 102 17 101/59 93 12/31/18 07:15 12/31/18 07:15 12/31/18 07:15 12/31/18 07:15 12/31/18 07:15 Exam: Gen: NAD, awake and alert. ENT: MMM CV: RRR, no murmurs, gallops Resp: CTAB, no wheezes, rales Abd: soft, NTTP, no guarding or rebound LE: b/l DP 2/4, no LE edema. RLE in flexed, medial lateral orthoglass splint, with skin pink and warm distal to splint skin: warm and dry Psych: appropriate mood and congruent affect - Assessment and Plan (1) Fall Current Visit: Yes Status: Acute Assessment and Plan: Patient fell [place] resulting in a fracture of his right femur. CXR shows no acute cardiopulmonary disease EKG: Plan: Dr. Sutherland of orthopedic surgery to take patient to surgery later today. Pain management as needed (2) Femur fracture, right Current Visit: Yes Status: Acute Assessment and Plan: s/p fall X-rays show periprosthetic comminuted displaced distal right femur fracture. Currently in flexed position with medial lateral splints in place Ortho following, appreciate recs Plan: Ortho to take for open reduction internal fixation of R femur this morning Will monitor post op Provide pain control (3) Urinary retention Current Visit: Yes Status: Acute Assessment and Plan: Zurita cath in place 1500 output total Plan: Continue to monitor prepare for bladder training for discharge (4) Anemia Current Visit: Yes Status: Acute Assessment and Plan: Possibly 2/2 hypovolemia Pt without active signs of external or internal bleeding SBP has decreased from 127 last night to 101 this morning Reflex tachycardia 102 afebrile Plan: H/H to monitor type and screen transfuse if necessary (5) Status post total right knee replacement Current Visit: No Status: Acute Assessment and Plan: April [address] Sutherland (6) DVT prophylaxis Current Visit: Yes Status: Acute Assessment and Plan: Holding chemical and SCD at this time due to scheduled surgery this morning. - Time Spent with Patient Total time spent is greater than 50% in coordination of care (as documented) at patient's floor/unit and/or counseling patient: Internal Medicine: Result - Labs CBC & Chem 7: 12/31/18 06:16 12/31/18 06:16 Labs: Short CBC 12/30/18 12/31/18 Range/Units 20:10 06:16 WBC 11.2 H 8.5 (4.3-11.1) K/mcL Hgb 13.6 12.1 L D (12.9-16.9) g/dL Hct 41.1 37.6 (37.5-50.1) % Plt Count 264 203 (140-400) K/mcL Neutrophils # 8.3 (1.6-8.9) K/mcL BMP 12/30/18 20:10 Sodium 139 Potassium 3.9 Chloride 106 Carbon Dioxide 24 BUN 12 Creatinine 0.89 Glucose 98 Calcium 9.4 Liver Function 12/30/18 Range/Units 20:10 Total Bilirubin 0.3 (0.3-1.0) mg/dL AST 14 (13-39) Units/L ALT 10 (7-52) Units/L Alkaline Phosphatase 73 (34-104) Units/L Albumin 4.1 (3.5-5.7) g/dL - ABG Interpretation ABG results: PT/INR, D-dimer PT 11.3 Seconds (9.4-12.1) 12/30/18 20:10 - Impressions Impressions Chest X-Ray 12/31/18 06:00 IMPRESSION: No acute cardiopulmonary disease. D/ / 12/31/2018 07:22:49 Prabhu Martinez MD / debbie Interpreting Provider: Prabhu Martinez MD Consult Discharge Plan - Plan Referrals: NONE,PCP [Primary Care Provider] - <Abigail Chaves - Last Filed: 12/31/18 13:34> Hospitalist Progress Note - Encounter Date of Encounter: 12/31/18 - Exam Vitals: Temp Pulse Resp BP Pulse Ox 99.5 F 76 17 97/51 94 12/31/18 11:08 12/31/18 11:08 12/31/18 11:08 12/31/18 11:08 12/31/18 11:08 - Time Spent with Patient Total time spent is greater than 50% in coordination of care (as documented) at patient's floor/unit and/or counseling patient: Internal Medicine: Result - Labs CBC & Chem 7: 12/31/18 06:16 12/31/18 06:16 Labs: Short CBC 12/30/18 12/31/18 Range/Units 20:10 06:16 WBC 11.2 H 8.5 (4.3-11.1) K/mcL Hgb 13.6 12.1 L D (12.9-16.9) g/dL Hct 41.1 37.6 (37.5-50.1) % Plt Count 264 203 (140-400) K/mcL Neutrophils # 8.3 (1.6-8.9) K/mcL BMP 12/30/18 12/31/18 20:10 06:16 Sodium 139 137 Potassium 3.9 4.2 Chloride 106 105 Carbon Dioxide 24 26 BUN 12 13 Creatinine 0.89 0.92 Glucose 98 115 H Calcium 9.4 8.7 Liver Function 12/30/18 Range/Units 20:10 Total Bilirubin 0.3 (0.3-1.0) mg/dL AST 14 (13-39) Units/L ALT 10 (7-52) Units/L Alkaline Phosphatase 73 (34-104) Units/L Albumin 4.1 (3.5-5.7) g/dL - ABG Interpretation ABG results: PT/INR, D-dimer PT 11.3 Seconds (9.4-12.1) 12/30/18 20:10 - Impressions Impressions Chest X-Ray 12/31/18 06:00 IMPRESSION: No acute cardiopulmonary disease. D/ / 12/31/2018 07:22:49 Prabhu Martinez MD / debbie Interpreting Provider: Prabhu Martinez MD - Attending Attestation The history, physical exam, and medical decision making was performed by the medical student Kali either while I was physically present and actively involved or I personally re-performed the exam and medical decision making. I have verified the accuracy of the medical student's documentation with regards to the history, physical exam findings, and medical decision making. Mr Cortes presented from OSH with right femur fracture and trasnferred here for surgical intervention awake, having knee pain, uncomfortable, wanting ortho to come back to see him as splint is uncomfortable. no pain in foot/ankle or hip. no cp, sob, pressure here or at home. activity is nt impaired at home by cp or sob. very eager for surgery today. gen- alert, awake,appears stated age cv- reg rate and rhythm, normal s1,s2, no murmurs appreciated, dp/pt puses intact and equal lungs- ctabl, no wheezing, rhonchi or crackles, normal resp effort on room air abd- soft, non tender, non distended, + bs msk- right knee splint in place, no ecchymosis,or erythema appreciated in visible portion of knee neuro- AAOx3, sensation to light touch rle intact Acute Comminuted transvere displaced right knee fracture with possible extension to right knee arthroplasty -seen by ortho -to or today -preop ekg and cxr normal -prn pain control Acute anemia suspected 2/2 fracture hgb 12.1 - will monitor in post op setting, no other identifiable bleeding source Leukocytosis resolved without intervention likely reactive 2/2 fracture Tobacco use- cessation education, patch as needed PE 2012 on ASA daily - will be on post op vte ppx, hold pre op COPD, stable vte ppx scd foot pumps pre op <KaliShanita - Last Filed: 12/31/18 11:01> (1) Fall Qualifiers: Encounter type: initial encounter Qualified Code(s): W19.XXXA - Unspecified fall, initial encounter (2) Femur fracture, right Qualifiers: Encounter type: initial encounter Femur location: unspecified portion of femur Fracture type: closed Fracture morphology: unspecified fracture morphology Qualified Code(s): S72.91XA - Unspecified fracture of right femur, initial encounter for closed fracture (4) Anemia Qualifiers: Anemia type: unspecified type Qualified Code(s): D64.9 - Anemia, unspecified
[2018-12-31 07:46] LABS: BUN/Creatinine Ratio 14 (6-26); Blood Urea Nitrogen 13 mg/dL (6-20); Calcium 8.7 mg/dL (8.6-10.3); Carbon Dioxide 26 mEq/L (23-29); Chloride 105 mEq/L (98-107); Glucose 115 mg/dL (70-105); Osmolality,Calculated 285 (280-300); Potassium 4.2 mEq/L (3.5-5.1); Sodium 137 mEq/L (136-145); eGFR For Non-African Americans > 60 (> 60)
--- NOTE | 2018-12-31 07:58 | Orthopedics Progress Note ---
Date of Encounter: 12/31/18 Time of Encounter: 07:56 Subjective Interval history: Patient seen this morning, patient is well-known to me. Patient is status post right total knee replacement and right total hip replacement. Patient subsequent knee had a periprosthetic right hip fracture underwent revision of the right femoral component. Patient was seen in the office last week overall making progress, patient reports reinjuring the right lower extremity in the [place] yesterday. Alicia the bone cracked. Alert and oriented 3 Normocephalic/atraumatic Right lower extremity Neurovascular intact In a flexed position Compartments soft Medial Lateral splints in place X-rays reviewed show periprosthetic comminuted displaced distal right femur fracture. Patient is recommended for open reduction internal fixation of right femur. Patient understands the significant issues he is having with this right leg, and potential complications. We reviewed the risks and benefits as well as recovery. All questions were answered. The patient agreed to this treatment plan and acknowledged an understanding of the treatment plan as described. Objective Vital signs: Vital Signs Temp Pulse Resp BP Pulse Ox 12/31/18 07:15 98.8 F 102 17 101/59 93 12/31/18 03:10 98.4 F 56 16 104/62 96 12/30/18 22:30 98.4 F 73 17 114/74 97 12/30/18 22:14 95 12/30/18 20:17 95 12/30/18 19:25 98.3 F 82 18 127/78 96 Intake and Output 12/30/18 12/30/18 12/31/18 15:59 23:59 07:59 Output Total 1500 / 1500 Balance -1500 / -1500 Output: Catheter 1500 / 1500 Other: Weight 87.6 kg - Labs CBC & BMP: 12/31/18 06:16 12/31/18 06:16 Labs: Abnormal lab results Hgb 12.1 g/dL (12.9-16.9) L D 12/31/18 06:16 MCH 27.8 pg (28.0-33.3) L 12/31/18 06:16 Glucose 115 mg/dL (70-105) H 12/31/18 06:16 Consult Discharge Plan - Plan Referrals: NONE,PCP [Primary Care Provider] -
--- NOTE | 2018-12-31 13:25 | Anesthesia Evaluation PreOp ---
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 IMAGER History: Other (anxiety, depression, migraine, bipolar) Other Medical History: Denies Any Significant HX Anesthesia History: No Prior Anesthetic Complications, Past Anesthesia (Back sx 1987, 2011, Knee scope, R- Thumb,) Alcohol Use: none Drug use: none Medications and Allergies Albuterol Sulfate [Albuterol Inhaler] 2 puff PO Q6H PRN 12/31/18 [History] Aspirin Enteric Coated [Aspirin EC] 162.5 mg PO QAM 12/31/18 [History] Allergy/AdvReac Type Severity Reaction Status Date / Time meloxicam AdvReac Migraine Verified 12/30/18 20:15 tamsulosin [From Flomax] AdvReac Nausea Verified 12/30/18 20:15 - Meds/Allergy Pre-op Review Medications Reviewed: Yes Allergies Reviewed: Yes Beta Blockers on Current Med List: No Anesthesia Results - Labs 12/31/18 06:16 12/31/18 06:16 Laboratory Tests 10/15/18 12/30/18 15:53 20:10 PT 11.3 INR 1.0 APTT 30.2 - Imaging EKG: report reviewed (SINUS RHYTHM Electronically Signed On 04-12-2018 16:22:47 EDT by Sandra Siu) Anesthesia Exam Vital Signs/O2 Sat, Most Current Temp Pulse Resp BP Pulse Ox 99.5 F 76 17 97/51 94 12/31/18 11:08 12/31/18 11:08 12/31/18 11:08 12/31/18 11:08 12/31/18 11:08 Weight: 87kg NPO (# of Hours): >8 - HEENT Pupil (Motor): Pupils equal, EOMI Mallampati: II Teeth: Normal (fair condition) Oral Opening: Greater than 3 - DIGITAL IMAGER LOC: Oriented DIGITAL IMAGER Motor: Normal RUE, Normal LUE, Normal RLE, Normal LLE, Normal Face DIGITAL IMAGER Sensory: Normal: RUE, LUE, RLE, LLE, Face - Cardiac Rhythm: Regular - Pulmonary Breath Sounds: bilateral Clear Respiratory Effort: Symmetrical Anesthesia Assess/Plan ASA Score: 3 Level of consciousness: Cooperative Anesthetic Plan: General, Regional Nerve Block Regional Nerve Block Plan: Femoral (Right) Reason for No Neuroaxial/Regional Block: Other (pt has had extensive lumbar surgeries so will not perform spinal will place a peripheral nn block instead) Monitoring Plan: Standard Monitors Recovery Plan: PACU
[2018-12-31] MEDS ORDERED: Albuterol 2.5 MG/3 ML NEBULIZER IH ONE (13:36)
[2018-12-31] MEDS ORDERED: *HR* Meperidine 25 MG/ML SYRINGE IVP PRN (13:37)
[2018-12-31] MEDS ORDERED: *HR* OxyCODONE Immed Rel 5 MG TABLET PO PRN (13:37)
[2018-12-31] MEDS ORDERED: Ondansetron 4 MG/2 ML VIAL IVP ONE (13:37)
[2018-12-31] MEDS ORDERED: *HR* Promethazine 25 MG/ML VIAL IVP PRN (13:37)
[2018-12-31] MEDS ORDERED: Albuterol 2.5 MG/3 ML NEBULIZER ONE (13:39)
[2018-12-31] MEDS ORDERED: Acetaminophen IV 1,000 MG/100 ML INFUS..BTL ONE (13:41)
[2018-12-31] MEDS ORDERED: Ringers Solution, Lactated 1,000 ML IVC SCH (13:45)
[2018-12-31] MEDS ORDERED: ROPIVACAINE HCL/PF 0.5% 30 ML VIAL ONE (13:51)
[2018-12-31] MEDS ORDERED: CeFAZolin Syr 2,000MG/20 ML 2,000 MG/20 ML SYRINGE IVPB ONE (14:05)
--- NOTE | 2018-12-31 14:06 | Anesthesia Procedures ---
Date of Encounter: 12/31/18 Time of Encounter: 14:00 Procedures: Anesthesia - Nerve Block Procedure Date: 12/31/18 Time: 14:00 Allergies/Adv Reactions: meloxicam, tamsulosin Surgical Procedure: right fremur orif Checklist: Correct Patient Identifier, Correct procedure, History checked Correct side: Right Blood Thinner: No Monitor Applied: EKG, BP, Pulse Oximetry Supplemental Oxygen via Nasal Cannula (L/min): 2 Sedation: Versed (mg): 2 Sedation: Fentanyl (mcg): 100 Indication: Post Op Analgesia Pre-op Neuro Deficits: No Block Type: Femoral Catheter placed: No Sterile Technique: Yes Ultrasound used: Yes Anatomy identified: Yes Visual spread of Local: Yes Neuro Stimulation: Yes Nerve Stimulator Range: 0.2 - 0.4 mA Blood on Needle Aspiration: No Smooth Injection of Local: Yes Pain with Injection of Local: No Prep: Chlorhexadine Needle: 22 x 50 mm Stimuplex Local: Ropivacaine (0.5%), Other (decadron 8mg) Volume (cc): 30 Number of Attempts: 1 Complications: None/effective block Vitals: Vital Signs/O2 Sat/Glucose, Most Recent Temp Pulse Resp BP Pulse Ox 99.5 F 84 15 98/63 95 12/31/18 11:08 12/31/18 13:59 12/31/18 13:59 12/31/18 13:59 12/31/18 13:59
[2018-12-31] MEDS ORDERED: Dexamethasone 4 MG/ML VIAL ONE (15:07)
[2018-12-31] MEDS ORDERED: *HR* PHENYLEPHRINE 1,000 MCG/10 ML SYRINGE IVP ONE (15:07)
[2018-12-31] MEDS ORDERED: Lidocaine -MPF 2% 2 ML VIAL ONE (15:08)
[2018-12-31] MEDS ORDERED: *HR* FentaNYL (PF) 100 MCG/2 ML VIAL ONE ×2 (15:08→15:11)
[2018-12-31] MEDS ORDERED: *HR* Midazolam HCl 2 MG/2 ML VIAL ONE (15:08)
[2018-12-31] MEDS ORDERED: *HR* Propofol 200 MG/20 ML VIAL IVP ONE (15:08)
[2018-12-31] MEDS ORDERED: *HR* Rocuronium Bromide 50 MG/5 ML VIAL ONE (15:08)
[2018-12-31] MEDS ORDERED: Ondansetron 4 MG/2 ML VIAL ONE (15:32)
[2018-12-31] MEDS ORDERED: Ethanol\\Acetic Acid\\Na Ace\\Ben 1,000 ML IRRIG.SOLN IR ONE (15:51)
--- NOTE | 2018-12-31 16:00 | Electrocardiograph Report ---
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
--- NOTE | 2018-12-31 16:11 | Orthopedic Operative Note ---
Date of procedure: 12/31/18 Pre-op diagnosis: Displaced comminuted periprosthetic right distal femur fracture Post-op diagnosis: same Procedure: Right femur open reduction internal fixation Estimated blood loss: 200 cc Hardware: Leni Large Frag 8 hole locking Plate, 16 4.5 cortical screws and 5.0 Locking screws Procedural Notes: Patient with a comminuted displaced fracture proximal to the femoral component. Femoral component of total knee appeared to be unaffected. The plate had overlap with the distal femur from the total hip replacement. Operative procedure: The patient was brought to the operating room and placed on the operating room fracture table. The well leg was placed in the well leg bailey, the fracture leg was placed in the fracture leg bailey. After general anesthesia was administered the operative leg was prepped and draped in the sterile surgical fashion The patient received IV antibiotics prior to skin incision. A standard lateral approach was made to the femur the incision is made to the skin and subcutaneous tissue. Hemostasis was obtained with Bovie cautery. Using careful blunt dissection the tensor fascia was identified and incised along the length of the incision. The vastus lateralis was elevated up after the fascia was split exposing the lateral femur and the fracture site. Patient noted to have a comminuted displaced fracture. The fractures reduced and held in place with bone holding forceps a Leni 8 hole large fragment locking plate was approximated to the lateral surface was fixed with a combination of 5.0 locking screws and 4.5 compression screws. Position of hardware as well as fracture reduction was found to be acceptable with fluoroscopic assistance in the AP and lateral planes.. The wound was irrigated the fascia was closed with a running #1 PDS suture tensa fascia was closed with a running #2 PDS suture subcutaneous tissues and closed deep #1 PDS suture superficially with 0 PDS suture and skin was closed with Dermabond and skin kimberly. The patient was placed in a sterile dressing, and knee immobilizer The patient was extubated, and then transferred to the recovery room in stable condition. Anesthesia: GETA Surgeon: Mike Sutherland Was there an imaging assistant present: No Estimated blood loss (cc): 200 Condition: stable Disposition: PACU
[2018-12-31] MEDS: *HR* HYDROmorphone (PF) 1 MG/ML SYRINGE IVP PRN ×2 (16:36→16:41)
--- NOTE | 2018-12-31 16:56 | Anesthesia Evaluation Post Op ---
Date of Encounter: 12/31/18 Time of Encounter: 16:55 - Vital Signs Vital Signs: Vital Signs/O2 Sat/Glucose, Most Recent Temp Pulse Resp BP Pulse Ox 100.3 F H 71 20 118/67 97 12/31/18 16:29 12/31/18 16:49 12/31/18 16:49 12/31/18 16:49 12/31/18 16:49 - Lungs Lungs: Clear Ascult./Percussion - Airway Airway: Non-obstructed - Cardiovascular Regular Rate - Mental Status Mental Status: Alert & Oriented, Answers Appropriately - Pain Pain Scale: 4 (resting between care) Pain Scale used: Numeric (1 - 10) - Nausea Vomiting Nausea Vomiting: Not Present - Hydration Hydration: NPO - Discharge PostOp Status: Transfer Patient to floor
[2018-12-31 17:34] LABS: Hematocrit 38.7 % (37.5-50.1); Hemoglobin 12.2 g/dL (12.9-16.9)
--- NOTE | 2019-01-01 06:24 | Orthopedics Progress Note ---
Date of Encounter: 01/01/19 Time of Encounter: 06:24 Subjective Interval history: Patient was seen this morning doing well without complaints. Afebrile vital signs stable. Operative extremity: Neurovascularly intact Dressing clean dry and intact Calves nontender Assessment and plan: Continue with postoperative care Objective Vital signs: Vital Signs Temp Pulse Resp BP Pulse Ox 01/01/19 03:10 99.0 F 72 16 108/62 96 01/01/19 00:22 98.5 F 72 14 105/59 98 12/31/18 19:25 97.9 F 85 16 119/54 97 12/31/18 17:38 98.1 F 73 16 108/65 98 12/31/18 16:59 99.7 F H 72 20 117/71 98 12/31/18 16:49 71 20 118/67 97 12/31/18 16:39 77 20 112/73 97 12/31/18 16:29 100.3 F H 78 20 120/73 93 12/31/18 14:37 84 16 101/62 94 12/31/18 14:27 83 16 101/59 96 12/31/18 14:11 83 15 98/75 95 12/31/18 14:07 82 16 101/70 94 12/31/18 13:59 84 15 98/63 95 12/31/18 13:50 83 16 113/61 96 12/31/18 11:08 99.5 F 76 17 97/51 94 12/31/18 07:15 98.8 F 102 17 101/59 93 Intake and Output 12/31/18 12/31/18 01/01/19 15:59 23:59 07:59 Intake Total 450 / 450 150 / 150 Output Total 600 / 600 900 / 900 2049 Balance -600 / -600 -450 / -450 -1900 / -1900 Intake: IV Fluids 100 / 100 Ancef 2,000 MG In 0.9 % Sodium 100 / 100 Chloride 100 ML @ 200 mls/hr IVPB Q8H [facility] Rx#:[id number] Oral 350 / 350 150 / 150 Output: Estimated Blood Loss 500 / 500 Catheter 600 / 600 400 / 400 2049 Other: Percent of Meal Consumed 0% Weight 86.94 kg Patient Weight 01/01/19 23:59 Weight 86.94 kg - Labs CBC & BMP: 12/31/18 16:44 12/31/18 06:16 Labs: Abnormal lab results Hgb 12.2 g/dL (12.9-16.9) L 12/31/18 16:44 MCH 27.8 pg (28.0-33.3) L 12/31/18 06:16 Glucose 115 mg/dL (70-105) H 12/31/18 06:16 Consult Discharge Plan - Plan Referrals: NONE,PCP [Primary Care Provider] -
[2019-01-01] MEDS ORDERED: *HR* HYDROcodone/Acet 5/325 mg TABLET PO PRN (06:57)
--- NOTE | 2019-01-01 08:02 | Internal Med Progress Note ---
<Win Dominguez - Last Filed: 01/01/19 13:03> Hospitalist Progress Note - Encounter Date of Encounter: 01/01/19 Time of Encounter: 09:00 - Subjective Interval History: Patient reports a lot of pain in the right lower extremity. He is able to move his toes and denies any numbness or tingling in the right lower extremity. He denies any acute overnight events. - Exam Vitals: Temp Pulse Resp BP Pulse Ox 98.8 F 69 16 106/65 96 01/01/19 07:15 01/01/19 07:15 01/01/19 07:15 01/01/19 07:15 01/01/19 07:15 Exam: General: pleasant, without distress Cardiovascualr: Regular rate and rhythm with no murmur, absent gallops or rubs, absent pedal edema, radial pulses 2 out of 4 Lungs: Clear to auscultation bilaterally, not in respiratory distress Abdomen: Soft nontender, nondistended positive bowel sounds, absent hepatomegaly Skin: warm and dry, absent rash, absent open wounds and nodules MSK: absent clubbing, cyanosis, joints without swelling. Right lower extremity in cast Neuro: Alert oriented 3 Psych: good insight and judgment, anxious - Assessment and Plan (1) Femur fracture, right Current Visit: Yes Status: Acute Assessment and Plan: Patient's x-ray shows periprostatic comminuted displaced distal right femur fracture Underwent orthopedic surgery last night without any complications PT OT eval Heparin subcutaneous Pain regimen (2) Anemia Current Visit: Yes Status: Acute Assessment and Plan: Hemoglobin is stable (3) Status post revision of total hip replacement Current Visit: Yes Status: Acute (4) Urinary retention Current Visit: Yes Status: Acute Assessment and Plan: Patient has a Zurita catheter and has January 2000 cc of urine today. Plan: We will remove Zurita catheter and assess urinary output. DVT Prophylaxis: heparin SQ - Time Spent with Patient Total time spent is greater than 50% in coordination of care (as documented) at patient's floor/unit and/or counseling patient: Internal Medicine: Result - Labs CBC & Chem 7: 01/01/19 08:29 12/31/18 06:16 Labs: Short CBC 12/31/18 Range/Units 16:44 Hgb 12.2 L (12.9-16.9) g/dL Hct 38.7 (37.5-50.1) % - ABG Interpretation ABG results: PT/INR, D-dimer PT 11.3 Seconds (9.4-12.1) 12/30/18 20:10 - Impressions Impressions Knee X-Ray 12/31/18 13:21 IMPRESSION: ORIF distal femur fracture without complication. D/ / 12/31/2018 17:30:50 Armin Rawls MD / niranjan Interpreting Provider: Armin Rawls MD Femur X-Ray 12/31/18 15:03 IMPRESSION: Intraprocedural fluoroscopic spot images as above. See separate procedure report for more information. D/ / Davi Snug MD / Davi Sung MD Interpreting Provider: Davi Sung MD Fluoroscopy 12/31/18 15:03 IMPRESSION: Intraprocedural fluoroscopic spot images as above. See separate procedure report for more information. D/ / Davi Sung MD / Davi Sung MD Interpreting Provider: Davi Sung MD Consult Discharge Plan - Plan Referrals: NONE,PCP [Primary Care Provider] - <Abigail Chaves - Last Filed: 01/01/19 13:57> Hospitalist Progress Note - Encounter Date of Encounter: 01/01/19 - Exam Vitals: Temp Pulse Resp BP Pulse Ox 98.5 F 69 18 125/71 97 01/01/19 11:25 01/01/19 11:25 01/01/19 11:25 01/01/19 11:25 01/01/19 11:25 - Time Spent with Patient Total time spent is greater than 50% in coordination of care (as documented) at patient's floor/unit and/or counseling patient: Internal Medicine: Result - Labs CBC & Chem 7: 01/01/19 08:29 12/31/18 06:16 Labs: Short CBC 12/31/18 01/01/19 Range/Units 16:44 08:29 Hgb 12.2 L 12.2 L (12.9-16.9) g/dL Hct 38.7 38.5 (37.5-50.1) % - ABG Interpretation ABG results: PT/INR, D-dimer PT 11.3 Seconds (9.4-12.1) 12/30/18 20:10 - Impressions Impressions Knee X-Ray 12/31/18 13:21 IMPRESSION: ORIF distal femur fracture without complication. D/ / 12/31/2018 17:30:50 Armin Rawls MD / niranjan Interpreting Provider: Armin Rawls MD Femur X-Ray 12/31/18 15:03 IMPRESSION: Intraprocedural fluoroscopic spot images as above. See separate procedure report for more information. D/ / Davi Sung MD / Davi Sung MD Interpreting Provider: Davi Sung MD Fluoroscopy 12/31/18 15:03 IMPRESSION: Intraprocedural fluoroscopic spot images as above. See separate procedure report for more information. D/ / Davi Sung MD / Davi Sung MD Interpreting Provider: Davi Sung MD - Attending Attestation I examined this patient and my medical decision-making was reviewed with the Resident Physician Dr Dominguez. I agree with the documented findings, disposition and treatment plan as described except to the extent set forth below. Mr Cortes presented from OSH with right femur fracture and transferred here for surgical intervention awake, in chair, + knee pain, tolerable, no cp, pressure, sob, presyncope. gen- alert, awake,appears stated age cv- reg rate and rhythm, normal s1,s2, no murmurs appreciated lungs- ctabl, no wheezing, rhonchi or crackles, normal resp effort on room air abd- soft, non tender, non distended, + bs msk- right knee brace/ewelina in place neuro- AAOx Acute Comminuted transvere displaced right knee fracture with possible extension to right knee arthroplasty -s/p OR with Dr Sutherland 12/31 -prn pain control -post op care as per ortho -vte ppx sq hep -dc to rehab likely per Acute anemia suspected 2/2 fracture hgb 12.1 - stable in post operative setting, NOT post op blood loss related anemia hemodynamically stable PE 2012 on ASA daily - on post op vte ppx hep sq , hold asa further diagnoses and plan as noted by resident <Win Dominguez - Last Filed: 01/01/19 13:03> (1) Femur fracture, right Qualifiers: Encounter type: initial encounter Femur location: unspecified portion of femur Fracture type: closed Fracture morphology: unspecified fracture mo rphology Qualified Code(s): S72.91XA - Unspecified fracture of right femur, initial encounter for closed fracture (2) Anemia Qualifiers: Anemia type: unspecified type Qualified Code(s): D64.9 - Anemia, unspecified
[2019-01-01 09:07] LABS: Hematocrit 38.5 % (37.5-50.1); Hemoglobin 12.2 g/dL (12.9-16.9)
[2019-01-01] MEDS: *HR* OxyCODONE Immed Rel 5 MG TABLET PO PRN ×3 (10:59→21:53)
--- NOTE | 2019-01-01 12:41 | Event Note ---
Date of Encounter: 01/01/19 Time of Encounter: 13:10 Patient seen at bedside. A&Ox3 Brace in place - VERENICE wraps in place No calf tenderness or warmth. Neurovascularly intact b/l LE. Labwork, vitals, and medications reviewed. Pain control: Adequate - Oxycodone added Participating in PT. All questions and concerns addressed. Educated on use of incentive spirometer, ambulation, and hydration. Patient educated on post-operative restrictions and care. Addressed: TROM brace locked extension at all times, will adjust for swelling on POD#2, NO KNEE MOTION, NONWEIGHTBEARING, Bone stimulator x 3 hours daily at same time each day. D/C plan: awaiting authorization for rehab
[2019-01-01] MEDS ORDERED: *HR* Heparin 5,000 UNIT/ML VIAL SQ SCH (14:00)
[2019-01-01] MEDS: *HR* Enoxaparin 30 MG/0.3 ML SYRINGE SQ SCH (19:05)
[2019-01-02] MEDS: *HR* Enoxaparin 30 MG/0.3 ML SYRINGE SQ SCH ×2 (05:04→16:28)
[2019-01-02] MEDS: *HR* OxyCODONE Immed Rel 5 MG TABLET PO PRN ×3 (05:06→16:28)
[2019-01-02 05:43] LABS: Hematocrit 33.7 % (37.5-50.1); Hemoglobin 10.9 g/dL (12.9-16.9)
--- NOTE | 2019-01-02 06:31 | Orthopedics Progress Note ---
Date of Encounter: 01/02/19 Time of Encounter: 06:31 Subjective Interval history: Patient was seen this morning doing well without complaints. Afebrile vital signs stable. Operative extremity: Neurovascularly intact Dressing clean dry and intact Calves nontender Assessment and plan: Continue with postoperative care Hematocrit 33 Objective Vital signs: Vital Signs Temp Pulse Resp BP Pulse Ox 01/02/19 05:08 98.5 F 82 16 114/75 96 01/02/19 01:02 99.0 F 67 18 124/66 96 01/01/19 20:00 97 01/01/19 19:11 98.8 F 78 18 113/70 97 01/01/19 15:09 98.8 F 73 18 113/65 97 01/01/19 11:25 98.5 F 69 18 125/71 97 01/01/19 07:15 98.8 F 69 16 106/65 96 Intake and Output 01/01/19 01/01/19 01/02/19 15:59 23:59 07:59 Intake Total 120 / 120 450 / 450 300 / 300 Output Total 350 / 350 500 / 500 600 / 600 Balance -230 / -230 -50 / -50 -300 / -300 Intake: Oral 120 / 120 450 / 450 300 / 300 Output: Urine 350 / 350 500 / 500 600 / 600 Other: Meal Lunch Dinner Percent of Meal Consumed 100% 85% Weight 87.1 kg Patient Weight 01/02/19 23:59 Weight 87.1 kg - Labs CBC & BMP: 01/02/19 05:25 12/31/18 06:16 Labs: Abnormal lab results Hgb 10.9 g/dL (12.9-16.9) L 01/02/19 05:25 Hct 33.7 % (37.5-50.1) L 01/02/19 05:25 MCH 27.8 pg (28.0-33.3) L 12/31/18 06:16 Glucose 115 mg/dL (70-105) H 12/31/18 06:16 Consult Discharge Plan - Plan Referrals: NONE,PCP [Primary Care Provider] -
--- NOTE | 2019-01-02 08:44 | Internal Med Progress Note ---
<Win Dominguez - Last Filed: 01/02/19 15:13> Hospitalist Progress Note - Encounter Date of Encounter: 01/02/19 Time of Encounter: 15:14 - Subjective Interval History: No acute events overnight patient complains of extreme pain in his right lower extremity whenever he puts pressure on it. He denies headache, chest pain, shortness of breath, abdominal pain, numbness, tingling - Exam Vitals: Temp Pulse Resp BP Pulse Ox 98.2 F 72 14 111/69 95 01/02/19 07:05 01/02/19 07:05 01/02/19 07:05 01/02/19 07:05 01/02/19 07:05 Exam: General: pleasant, without distress Cardiovascualr: Regular rate and rhythm with no murmur, absent gallops or rubs, absent pedal edema, radial pulses 2 out of 4 Lungs: Clear to auscultation bilaterally, not in respiratory distress Abdomen: Soft nontender, nondistended positive bowel sounds, absent hepatomegaly Skin: warm and dry, absent rash, absent open wounds and nodules MSK: absent clubbing, cyanosis, joints without swelling. Right lower extremity in cast Neuro: Alert oriented 3 Psych: good insight and judgment, anxious - Assessment and Plan (1) Femur fracture, right Current Visit: Yes Status: Acute Assessment and Plan: Patient's x-ray shows periprostatic comminuted displaced distal right femur fracture Underwent orthopedic surgery last night without any complications Patient will be discharged to swing bed tomorrow Subcutaneous Lovenox Pain regimen (2) Anemia Current Visit: Yes Status: Acute Assessment and Plan: Hemoglobin has decreased from 13.6 on admission to 10.9 Repeat H&H tomorrow Hemodynamically stable (3) Status post revision of total hip replacement Current Visit: Yes Status: Acute (4) Urinary retention Current Visit: Yes Status: Resolved Assessment and Plan: Resolved DVT Prophylaxis: Lovenox - Time Spent with Patient Total time spent is greater than 50% in coordination of care (as documented) at patient's floor/unit and/or counseling patient: Internal Medicine: Result - Labs CBC & Chem 7: 01/02/19 05:25 12/31/18 06:16 Labs: Short CBC 01/01/19 01/02/19 Range/Units 08:29 05:25 Hgb 12.2 L 10.9 L (12.9-16.9) g/dL Hct 38.5 33.7 L (37.5-50.1) % - ABG Interpretation ABG results: PT/INR, D-dimer PT 11.3 Seconds (9.4-12.1) 12/30/18 20:10 - Impressions Impressions Knee X-Ray 12/31/18 13:21 IMPRESSION: ORIF distal femur fracture without complication. D/ / 12/31/2018 17:30:50 Armin Rawls MD / niranjan Interpreting Provider: Armin Rawls MD Consult Discharge Plan - Plan Referrals: NONE,PCP [Primary Care Provider] - <Yolanda Tafoya - Last Filed: 01/02/19 17:21> Hospitalist Progress Note - Encounter Date of Encounter: 01/02/19 - Exam Vitals: Temp Pulse Resp BP Pulse Ox 98.7 F 77 18 102/61 96 01/02/19 15:11 01/02/19 15:11 01/02/19 15:11 01/02/19 15:11 01/02/19 15:11 - Time Spent with Patient Total time spent is greater than 50% in coordination of care (as documented) at patient's floor/unit and/or counseling patient: Internal Medicine: Result - Labs CBC & Chem 7: 01/02/19 05:25 12/31/18 06:16 Labs: Short CBC 01/02/19 Range/Units 05:25 Hgb 10.9 L (12.9-16.9) g/dL Hct 33.7 L (37.5-50.1) % - ABG Interpretation ABG results: PT/INR, D-dimer PT 11.3 Seconds (9.4-12.1) 12/30/18 20:10 - Attending Attestation I examined this patient and my medical decision-making was reviewed with the Resident Physician. I agree with the documented findings, disposition and treatment plan as described except to the extent set forth below. <Win Dominguez - Last Filed: 01/02/19 15:13> (1) Femur fracture, right Qualifiers: Encounter type: initial encounter Femur location: unspecified portion of femur Fracture type: closed Fracture morphology: unspecified fracture morphology Qualified Code(s): S72.91XA - Unspecified fracture of right femur, initial encounter for closed fracture (2) Anemia Qualifiers: Anemia type: unspecified type Qualified Code(s): D64.9 - Anemia, unspecified
[2019-01-02] MEDS ORDERED: Ketorolac 15 MG/ML VIAL IVP ONE (11:13)
[2019-01-02] MEDS: Nystatin SUSP 5 ML UD.LIQ PO SCH ×3 (11:40→20:33)
--- NOTE | 2019-01-02 15:47 | Event Note ---
Date of Encounter: 01/02/19 Time of Encounter: 12:00 Date of procedure: 12/31/18 Pre-op diagnosis: Displaced comminuted periprosthetic right distal femur fracture Post-op diagnosis: same Procedure: Right femur open reduction internal fixation Patient seen at bedside. Spouse at bedside. A&Ox3 Brace in place - VERENICE wraps in place - no drainage noted on VERENICE wraps. No calf tenderness or warmth. Neurovascularly intact b/l LE. Labwork, vitals, and medications reviewed. Pain control: Adequate - Oxycodone added on 01/01. Patient c/o sharp shooting pains. Participating in PT. All questions and concerns addressed. Patient educated on post-operative restrictions and care. Addressed: TROM brace locked extension at all times, will adjust for swelling on POD#2, NO KNEE MOTION, NONWEIGHTBEARING, Bone stimulator x 3 hours daily at same time each day. D/C plan: awaiting authorization for rehab
[2019-01-02] MEDS ORDERED: HYDROcodone BIT/Homatropine 5 MG TABLET PO PRN (15:50)
[2019-01-02] MEDS ORDERED: tiZANidine 4 MG TABLET PO PRN (15:51)
[2019-01-02] MEDS ORDERED: Acetaminophen IV 1,000 MG/100 ML INFUS..BTL IVPB PRN (16:23)
[2019-01-02] MEDS ORDERED: Acetaminophen IV 1,000 MG/100 ML INFUS..BTL IVPB SCH (18:00)
[2019-01-02] MEDS: Celecoxib 100 MG CAPSULE PO PRN (20:33)
[2019-01-03] MEDS: *HR* OxyCODONE Immed Rel 5 MG TABLET PO PRN ×2 (02:37→09:01)
[2019-01-03 03:59] LABS: Hematocrit 32.4 % (37.5-50.1); Hemoglobin 10.6 g/dL (12.9-16.9)
[2019-01-03] MEDS: *HR* Enoxaparin 30 MG/0.3 ML SYRINGE SQ SCH (05:38)
[2019-01-03] MEDS: Celecoxib 100 MG CAPSULE PO PRN (06:00)
--- NOTE | 2019-01-03 06:28 | Orthopedics Progress Note ---
Date of Encounter: 01/03/19 Time of Encounter: 06:27 Subjective Interval history: Patient was seen this morning doing well without complaints. Afebrile vital signs stable. Operative extremity: Neurovascularly intact Dressing clean dry and intact Calves nontender Assessment and plan: Continue with postoperative care Discharged today Objective Vital signs: Vital Signs Temp Pulse Resp BP Pulse Ox 01/03/19 04:10 98.3 F 64 16 101/64 97 01/02/19 22:48 98.3 F 71 17 98/62 94 01/02/19 19:05 98.6 F 82 16 96/63 96 01/02/19 15:11 98.7 F 77 18 102/61 96 01/02/19 10:30 98.7 F 76 16 116/69 95 01/02/19 08:55 95 01/02/19 07:05 98.2 F 72 14 111/69 95 Intake and Output 01/02/19 01/02/19 01/03/19 15:59 23:59 07:59 Intake Total 480 / 480 840 / 840 300 / 300 Output Total 1650 / 1650 1500 / 1500 500 / 500 Balance -1170 / -1170 -660 / -660 -200 / -200 Intake: Oral 480 / 480 840 / 840 300 / 300 Output: Urine 1650 / 1650 1500 / 1500 500 / 500 Other: Meal Lunch Dinner Percent of Meal Consumed 25% 70% Weight 87.2 kg Patient Weight 01/03/19 23:59 Weight 87.2 kg - Labs CBC & BMP: 01/03/19 03:13 12/31/18 06:16 Labs: Abnormal lab results Hgb 10.6 g/dL (12.9-16.9) L 01/03/19 03:13 Hct 32.4 % (37.5-50.1) L 01/03/19 03:13 MCH 27.8 pg (28.0-33.3) L 12/31/18 06:16 Glucose 115 mg/dL (70-105) H 12/31/18 06:16 Consult Discharge Plan - Plan Referrals: NONE,PCP [Primary Care Provider] -
[2019-01-03] MEDS: Nystatin SUSP 5 ML UD.LIQ PO SCH (09:01)
[2019-01-03 12:39] VITALS: BP 99/61
--- NOTE | 2019-01-03 12:54 | Physician Discharge Referral ---
ExtendedCare Referral Info Transfer To: [facility] - Diagnosis (1) Femur fracture, right Priority: Primary Status: Acute (2) Status post revision of total hip replacement Priority: Primary Status: Chronic - Transfer Medications Home Medications: Albuterol Sulfate [Albuterol Inhaler] 2 puff PO Q6H PRN 12/31/18 [History] Aspirin Enteric Coated [Aspirin EC] 162.5 mg PO QAM 12/31/18 [History] Allergies/Adverse Reactions: Allergy/AdvReac Type Severity Reaction Status Date / Time meloxicam AdvReac Migraine Verified 12/30/18 20:15 tamsulosin [From Flomax] AdvReac Nausea Verified 12/30/18 20:15 - Respiratory Orders Smoking Cessation: Smoking cessation has been advised. For more information, call the [place] Tobacco Quit Line at 7-181-SROJ-NOW. - Ancillary Orders May use pressure relief devices daily prn, May go on STACY w/family/respon libertarian w/meds at nurse discretion PRN, May consult with Dentist, Facility Mechanic, Boat Person PRN - Mobility Orders Chair, Ambulate (NONWEIGHTBEARING TO RIGHT LOWER EXTREMITY) - Rehabiliation Orders Rehab Potential: Fair Rehab Orders: Evaluation for Physical Therapy, Evaluation for Occupational Therapy Other: Opsite placed. Keep dressing intact until first follow up appointment. If greater than 50% saturated, notify office, remove dressing and place appropriate dressing back in place. Leave Zipline and [place] intact. Opsite dressing is water resistant, not water-proof. OK to shower, but do not get dressing wet. NONWEIGHTBEARING TO RIGHT LOWER EXTREMITY TROM BRACE TO BE APPLIED AT ALL TIMES - REMOVE ONLY FOR HYGIENE PURPOSES AND DO NOT ALLOW KNEE TO BEND BRACE WHEELS SHOULD BE LOCATED TO EITHER SIDE OF PATIENT'S KNEE WITH STRAPS ADJUSTED FREQUENTLY FOR COMFORT AND FIT REMOVE VERENICE WRAPS AND REAPPLY WITH GENTLE TENSION FROM FOOT TO MID THIGH AT LEAST ONCE DAILY NO KNEE MOTION MINIMIZE HIP MOTION WITH ACTIVITY BONE STIMULATOR 3 HOURS DAILY AT APPX SAME TIME EACH DAY - Treatments Skin tear care topically daily PRN per policy - Diet Orders Regular CERTIFICATION: I certify that the transfer of the above named patient to an Extended Care Facility is necessary for the continuing treatment of the diagnosis listed. The above information is true and accurate reflection of patient's current condition. Confidential - Redisclosure prohibited without a patient's written consent.
--- NOTE | 2019-01-03 12:55 | Event Note ---
Date of Encounter: 01/03/19 Time of Encounter: 13:30 Date of procedure: 12/31/18 Pre-op diagnosis: Displaced comminuted periprosthetic right distal femur fracture Post-op diagnosis: same Procedure: Right femur open reduction internal fixation Patient seen at bedside. A&Ox3 Brace in place - VERENICE wraps in place - no drainage noted on VERENICE wraps. Patient taught how to adjust brace for comfort and proper fit. No calf tenderness or warmth. Neurovascularly intact b/l LE. Labwork, vitals, and medications reviewed. Pain control: Adequate - Oxycodone added on 01/01. Patient c/o sharp shooting pains. Participating in PT. All questions and concerns addressed. Patient educated on post-operative restrictions and care. Addressed: TROM brace locked extension at all times, will adjust for swelling on POD#2, NO KNEE MOTION, NONWEIGHTBEARING, Bone stimulator x 3 hours daily at same time each day. D/C plan: to rehab today - continuity started
--- NOTE | 2019-01-03 13:15 | Discharge Summary ---
Orders not resulted at time of discharge: Pending orders 12/31/18 13:37 US anesthesia pain block [US] Stat Date of Encounter: 01/03/19 Time of Encounter: 13:12 - Discharge Diagnosis (1) Femur fracture, right Priority: Primary Status: Acute Qualifiers: Encounter type: initial encounter Femur location: unspecified portion of femur Fracture type: closed Fracture morphology: unspecified fracture morphology Qualified Code(s): S72.91XA - Unspecified fracture of right femur, initial encounter for closed fracture (2) Urinary retention Priority: Secondary Status: Resolved (3) Status post total hip replacement, right Priority: Secondary Status: Acute Hospital course: Patient presented to the emergency room from [facility] after experiencing a fall and a right femur fracture proximal to the right knee replacement (done in Apr 2018). [place] falling on his right leg. He was then transported to [place] emergency room where an x-ray of the leg was performed. The results showed: Acute comminuted transverse fracture half shaft width posterior displaced anterior apex angulated 36 degrees distal right femoral metadiaphysis. Patient was then transferred to [facility] emergency room for further management. Orthopedic Surgery was consulted. He underwent right femur ORIF and tolerated procedure well. He was monitored post-op and did well. He was discharged to SNF in stable condition. - Time Spent with Patient Total time spent providing and/or coordinating discharge services: - Discharge Medications Prescriptions: New OxyCODONE Immed Rel [Roxicodone 5 MG] 10 mg PO Q6HR PRN 3 Days #24 tablet PRN Reason: Severe Pain Enoxaparin [Lovenox] 30 mg SQ Q12HCO syringe Docusate [Colace] 100 mg PO BID capsule Continue Albuterol Sulfate [Albuterol Inhaler] 2 puff PO Q6H PRN PRN Reason: Shortness Of Breath Aspirin Enteric Coated [Aspirin EC] 162.5 mg PO QAM Home Medications: Albuterol Sulfate [Albuterol Inhaler] 2 puff PO Q6H PRN 12/31/18 [History] Aspirin Enteric Coated [Aspirin EC] 162.5 mg PO QAM 12/31/18 [History] Docusate [Colace] 100 mg PO BID capsule 01/03/19 [Rx] Enoxaparin [Lovenox] 30 mg SQ Q12HCO syringe 01/03/19 [Rx] OxyCODONE Immed Rel [Roxicodone 5 MG] 10 mg PO Q6HR PRN 3 Days #24 tablet 01/03/19 [Rx] Allergies/Adverse Reactions: Allergy/AdvReac Type Severity Reaction Status Date / Time meloxicam AdvReac Migraine Verified 12/30/18 20:15 tamsulosin [From Flomax] AdvReac Nausea Verified 12/30/18 20:15 Date of admission: 12/31/18 07:55 Primary care physician: PCP NONE Consults: 12/30/18 19:51 Consult to Orthopedic Surgery [CONS] Stat Consulting Provider: [facility] Reason for Consult: femur fracture Time Notified: 19:51 Call Completed: Yes 12/31/18 17:14 Consult to Occupational Therapy [CONS] Routine Comment: Evaluate, develop and implement POC Reason for Consult: postop Does patient have active BEDREST order?: No Is patient medically & hemodynamically stable?: Yes Patient assessed for mobility or mobilized this visit?: Yes Consult to Orthopedic Navigator [CONS] [CONS] Routine Consult to Physical Therapy [CONS] Routine Comment: Evaluate, develop and implement POC Reason for Consult: postop Does patient have active BEDREST order?: No Is patient medically & hemodynamically stable?: Yes Patient assessed for mobility or mobilized this visit?: Yes Consult to Architectural Draftsman [CONS] Routine Reason for SW Consult: postop placement RT Post Op Consult [CONS] Routine - Constitutional Vitals: Temp Pulse Resp BP Pulse Ox 99 F 76 16 99/61 95 01/03/19 12:37 01/03/19 12:37 01/03/19 12:37 01/03/19 12:37 01/03/19 12:37 General appearance: Present: cooperative, A&O X 3, pleasant, no acute distress, answers questions appropriately Exam: General: pleasant, without distress Cardiovascualr: Regular rate and rhythm with no murmur, absent gallops or rubs, absent pedal edema, radial pulses 2 out of 4 Lungs: Clear to auscultation bilaterally, not in respiratory distress Abdomen: Soft nontender, nondistended positive bowel sounds, absent hepatomegaly Skin: warm and dry, absent rash, absent open wounds and nodules MSK: absent clubbing, cyanosis, joints without swelling. Right lower extremity in cast Neuro: Alert oriented 3 Psych: good insight and judgment, anxious - Patient Status Disposition: Transfer SNF Condition: Fair Functional capacity at discharge: wheelchair bound Overall status at discharge: patient is progressing back to baseline - Discharge Instructions Follow Up With: NONE,PCP [Primary Care Provider] - Forms: ED Satisfaction Letter - Diet and Activity Activity: increase activity as tolerated Diet: advance to your usual diet
== END 2019-01-03 15:13 | DRG 482 ==
LOC: 3NENU 19:24 → EMEROOARM 19:24 → SUATTDRO 20:30 → 3NENU 22:12 → SUATTDRO 12-31 07:55
PROVIDERS: ADMIT Pediatrics; ATTEND Student in an Organized Health Care Education/Training Program